=== PATIENT | male | born 1965 | race African-American/Black ===

== ENCOUNTER 2022-11-29 11:39 | Emergency (ER) | payer MEDICAID ==
[~2022-11-29] VITALS: Ht 165.1 cm; Wt 38.5 kg
[2022-11-29 12:15] VITALS: O2SAT 100
[2022-11-29] MEDS ORDERED: MAGNESIUM/ALUMINUM HYDROXIDE/SIMETHICONE 30ML UDC PO STA (12:17)
[2022-11-29 12:39] LABS: BASOPHILS % 0.9 % (0.0-2.0); EOSINOPHILS % 0.7 % (0.0-5.0); HEMATOCRIT. 38.2 % (42.0-52.0); HEMOGLOBIN. 13.3 g/dL (14.0-18.0); LYMPHOCYTES % 36.2 % (20.0-50.0); MEAN CORPUSCULAR HGB CONC 34.8 g/dL (31.0-37.0); MEAN PLATELET VOLUME 7.4 fl (7.4-10.4); MONOCYTES % 13.3 % (2.0-8.0); NEUTROPHILS % 48.9 % (40.0-76.0); PLATELET 272 x1000/uL (130-400); RED BLOOD CELL COUNT 4.15 mill/uL (4.7-6.1); RED CELL DISTRIBUTION WIDTH 13.3 % (11.6-14.6)
[2022-11-29 12:48] LABS: CHLORIDE 103 mEq/L (98-107); INDEX HEMOLYSI 1 (1-3); INDEX ICTERIC 1 (1-4); INDEX LIPEMIC 1 (1-3); POTASSIUM 3.8 mEq/L (3.5-5.1); SODIUM 133 mEq/L (136-145)
[2022-11-29 12:55] LABS: ALANINE AMINOTRANSFERASE 13 IU/L (13-61); ALBUMIN 3.4 g/dL (3.4-5.0); ASPARTATE AMINOTRANSFERASE 12 IU/L (15-37); BILIRUBIN TOTAL 1.1 mg/dL (0.1-1.0); CALCIUM 9.2 mg/dL (8.5-10.1); CARBON DIOXIDE 22 mEq/L (21-32); CREATININE 0.8 mg/dL (0.6-1.3); GLUCOSE 90 mg/dL (70-105); PROTEIN TOTAL 7.5 g/dL (6.0-8.3); UREA NITROGEN BLOOD 13 mg/dL (7-21)
[2022-11-29 14:23] LABS: NT PRO B-TYPE NATRIURETIC PEP 237 pg/mL (5-125); TROPONIN I HIGH SENSITIVITY 6 ng/L (<78)
[2022-11-29] MEDS ORDERED: OMEP40CA20 MT (15:50)
[2022-11-29 17:21] VITALS: BP 124/68; PULSE 60; RESP 15; TEMP 98.7
== END 2022-11-29 17:25 | disposition home or self-care (01) ==
LOC: ER 11:47
DX: R10.13 Epigastric pain (principal); I10 Essential (primary) hypertension; F12.10 Cannabis abuse, uncomplicated; Y90.0 Blood alcohol level of less than 20 mg/100 ml
CPT/HCPCS: 36415; 74176; 80053; 83880; 84484; 85025; 93005; 99284